=== PATIENT | male | born 1970 | race Caucasian/White ===

== ENCOUNTER 2017-06-07 09:41 | Day surgery (SDC) | payer BC ==
[2017-06-05 09:55] VITALS: BMI 34.4
[2017-06-07] MEDS ORDERED: PROPOFOL 20 ML ONE (09:47)
[2017-06-07 11:40] VITALS: PULSE 59
[2017-06-07 11:42] VITALS: BP 132/85; TEMP 98
--- NOTE | 2017-06-08 16:29 | PATH ---
Surgical Pathology Report Patient Name: STEF BORGES [facility]. Rec. #: [id number] /Age/Gender: 1970 (Age: 47) / M Account: [id number] Location: Taken: 06/07/2017 Received: 06/07/2017 Reported: 06/08/2017 Physicians: Bertha Turner M.D. Specimen(s) Received A: BX ANTRUM B: BX GE JUNCTION Clinical History GERD Gastritis, esophageal ulcers, gastric ulcers, r/o Thayer's esophagus Final Diagnosis A. ANTRUM, BIOPSY: MILD CHRONIC GASTRITIS. IMMUNOSTAIN IS NEGATIVE FOR H. PYLORI ORGANISMS. B. GE JUNCTION, BIOPSY: COLUMNAR (GASTRIC-TYPE) MUCOSA SHOWING MODERATE CHRONIC INFLAMMATION AND FOCAL INTESTINAL METAPLASIA, CONSISTENT WITH THAYER'S ESOPHAGUS IN THE APPROPRIATE CLINICAL/ENDOSCOPIC SETTING. ESOPHAGOGASTRIC JUNCTIONAL (SQUAMOCOLUMNAR) MUCOSA SHOWING FEATURES OF REFLUX ESOPHAGITIS. NEGATIVE FOR DYSPLASIA. Electronically Signed Jenna Al M.D. Gross Description A.Received in formalin, labeled "antrum" one piece of light cassidy soft tissue measuring 0.2 cm in greatest dimension. Entirely submitted one cassette. B. Received in formalin, labeled "GE junction" are three pieces of light cassidy soft tissue ranging from 0.1-0.2 cm in greatest dimension. Entirely submitted one cassette. (AE)
== END 2017-06-07 11:42 | disposition home or self-care (01) ==
LOC: FASU-ENDO 09:41
PROVIDERS: ATTEND Internal Medicine Gastroenterology
PROC: 0DB48ZX Excision of Esophagogastric Junction, Via Natural or Artificial Opening Endoscopic, Diagnostic (ICD-10-PCS; principal; 2017-06-07 10:36)
PROC: 0DB68ZX Excision of Stomach, Via Natural or Artificial Opening Endoscopic, Diagnostic (ICD-10-PCS; 2017-06-07 10:36)
DX: K22.70 Barrett's esophagus without dysplasia (principal); K29.50 Unspecified chronic gastritis without bleeding; K21.0 Gastro-esophageal reflux disease with esophagitis; K25.9 Gastric ulcer, unspecified as acute or chronic, without hemorrhage or perforation
CPT/HCPCS: 88305-TC; 88342-TC

== ENCOUNTER → 2018-06-20 | Day surgery (SDC) | payer BC ==
[2018-06-19 11:36] VITALS: BMI 39.1
[~2018-06-20] MED LIST: PROPOFOL 20 ML ONE
[2018-06-20 10:54] VITALS: TEMP 98.1
[2018-06-20 12:29] VITALS: BP 127/77; PULSE 72
--- NOTE | 2018-06-22 14:26 | PATH ---
Surgical Pathology Report Patient Name: STEF BORGES [facility]. Rec. #: [id number] /Age/Gender: 1970 (Age: 48) / M Account: [id number] Location: [facility] Taken: 06/20/2018 Received: 06/20/2018 Reported: 06/22/2018 Physicians: Bertha Turner M.D. Specimen(s) Received A: DUODENUM B: ANTRUM C: GE JUNCTION Clinical History Dyspepsia, Thayer's esophagus Postoperative diagnosis: Thayer's esophagus, rule out celiac disease, gastritis Final Diagnosis A. DUODENUM, BIOPSY: DUODENAL MUCOSA WITH NO PATHOLOGIC FINDINGS. Note: Features suggestive of celiac disease are not identified in this biopsy. B. ANTRUM, BIOPSY: MILD CHRONIC GASTRITIS. IMMUNOSTAIN IS NEGATIVE FOR H. PYLORI ORGANISMS. C. GE JUNCTION, BIOPSY: COLUMNAR (GASTRIC-TYPE) MUCOSA SHOWING MODERATE CHRONIC INFLAMMATION AND FOCAL INTESTINAL METAPLASIA, COMPATIBLE WITH THAYER'S ESOPHAGUS IN THE APPROPRIATE ENDOSCOPIC SETTING. ESOPHAGEAL (SQUAMOUS) MUCOSA WITH NO SIGNIFICANT PATHOLOGIC FINDINGS. NEGATIVE FOR DYSPLASIA. Electronically Signed Jenna Al M.D. Gross Description A. Received in formalin, labeled "duodenum" are 2 cassidy, irregular portions of soft tissue measuring 0.2 and 0.3 cm. in greatest dimension. The specimens are submitted in toto in one cassette. B. Received in formalin, labeled "antrum" is a cassidy, irregular portion of soft tissue measuring 0.4 cm. in greatest dimension. The specimen is submitted in toto in one cassette. C. Received in formalin, labeled "GE Junction" are 4 cassidy, irregular portions of soft tissue ranging from 0.4-0.5 cm. in greatest dimension. The specimens are submitted in toto in one cassette. 06/20/2018
== END | disposition home or self-care (01) ==
LOC: FASU-ENDO 10:30
PROVIDERS: ATTEND Internal Medicine Gastroenterology
PROC: 0DB58ZX Excision of Esophagus, Via Natural or Artificial Opening Endoscopic, Diagnostic (ICD-10-PCS; 2018-06-20)
PROC: 0DB98ZX Excision of Duodenum, Via Natural or Artificial Opening Endoscopic, Diagnostic (ICD-10-PCS; principal; 2018-06-20 11:40)
PROC: 0DB68ZX Excision of Stomach, Via Natural or Artificial Opening Endoscopic, Diagnostic (ICD-10-PCS; 2018-06-20 11:40)
DX: K29.50 Unspecified chronic gastritis without bleeding (principal); K22.70 Barrett's esophagus without dysplasia
CPT/HCPCS: 88305-TC; 88342-TC

== ENCOUNTER 2021-01-15 08:56 | Day surgery (SDC) | payer BC ==
[2021-01-15] MEDS ORDERED: LIDOCAINE HCL/PF 2% SDV 5ML VIAL ONE (09:18)
[2021-01-15] MEDS ORDERED: PROPOFOL 20 ML ONE ×3 (09:18)
[2021-01-15 09:23] VITALS: BMI 39.1
[2021-01-15 11:12] VITALS: PULSE 74; TEMP 98
[2021-01-15 12:02] VITALS: BP 118/65
== END 2021-01-15 11:20 | disposition home or self-care (01) ==
LOC: FASU-ENDO 08:56
PROVIDERS: ATTEND Internal Medicine Gastroenterology
PROC: 0DJD8ZZ Inspection of Lower Intestinal Tract, Via Natural or Artificial Opening Endoscopic (ICD-10-PCS; principal; 2021-01-15 10:30)
DX: Z12.11 Encounter for screening for malignant neoplasm of colon (principal); K57.30 Diverticulosis of large intestine without perforation or abscess without bleeding; K64.0 First degree hemorrhoids; K64.8 Other hemorrhoids

== ENCOUNTER 2022-01-21 11:39 | Day surgery (SDC) | payer BC ==
[2022-01-21 12:05] VITALS: BMI 41.3
[2022-01-21 13:30] VITALS: TEMP 97.2
[2022-01-21 14:03] VITALS: BP 138/80; PULSE 76
== END 2022-01-21 14:00 | disposition home or self-care (01) ==
LOC: FASU-ENDO 11:39
PROVIDERS: ATTEND Internal Medicine Gastroenterology
PROC: 0DB68ZX Excision of Stomach, Via Natural or Artificial Opening Endoscopic, Diagnostic (ICD-10-PCS; 2022-01-21)
PROC: 0DB18ZX Excision of Upper Esophagus, Via Natural or Artificial Opening Endoscopic, Diagnostic (ICD-10-PCS; 2022-01-21)
PROC: 0DB28ZX Excision of Middle Esophagus, Via Natural or Artificial Opening Endoscopic, Diagnostic (ICD-10-PCS; 2022-01-21)
PROC: 0DB38ZX Excision of Lower Esophagus, Via Natural or Artificial Opening Endoscopic, Diagnostic (ICD-10-PCS; 2022-01-21)
PROC: 0DB48ZX Excision of Esophagogastric Junction, Via Natural or Artificial Opening Endoscopic, Diagnostic (ICD-10-PCS; 2022-01-21)
PROC: 0DB98ZX Excision of Duodenum, Via Natural or Artificial Opening Endoscopic, Diagnostic (ICD-10-PCS; principal; 2022-01-21 13:07)
DX: K29.50 Unspecified chronic gastritis without bleeding (principal); K21.00 Gastro-esophageal reflux disease with esophagitis, without bleeding; R10.13 Epigastric pain; Z87.19 Personal history of other diseases of the digestive system
CPT/HCPCS: 88305-TC; 88342-TC

== ENCOUNTER 2023-10-20 09:29 | Day surgery (SDC) | payer BC ==
[2023-10-16 14:20] VITALS: BMI 43.0
[2023-10-20 11:38] VITALS: RESP 16; TEMP 97.9
[2023-10-20 11:53] VITALS: BP 134/92; PULSE 78
== END 2023-10-20 11:50 | disposition home or self-care (01) ==
LOC: FASU-ENDO 09:29
PROVIDERS: ATTEND Internal Medicine Gastroenterology
PROC: 0DB68ZX Excision of Stomach, Via Natural or Artificial Opening Endoscopic, Diagnostic (ICD-10-PCS; 2023-10-20)
PROC: 0DB48ZX Excision of Esophagogastric Junction, Via Natural or Artificial Opening Endoscopic, Diagnostic (ICD-10-PCS; 2023-10-20)
PROC: 0DB98ZX Excision of Duodenum, Via Natural or Artificial Opening Endoscopic, Diagnostic (ICD-10-PCS; principal; 2023-10-20 10:59)
DX: K22.70 Barrett's esophagus without dysplasia (principal); K29.50 Unspecified chronic gastritis without bleeding; K21.00 Gastro-esophageal reflux disease with esophagitis, without bleeding
CPT/HCPCS: 88305-TC; 88342-TC